=== PATIENT | male | born 1965 | race Caucasian/White ===

== ENCOUNTER 2022-10-22 03:09 | Emergency (ER) | payer OTHER ==
[~2022-10-22] VITALS: Ht 180.3 cm; Wt 99.8 kg
--- NOTE | 2022-10-22 03:20 | NUR ---
TO ER BED 10. [id number] FROM HOME C/O FEELING DIZZY TONIGHT, STARTED TO GET WORSE . PT IS ALERT AND ORIENTED. RR EVEN AND NON LABORED. CONNECTED TO MONITOR.
[2022-10-22] MEDS ORDERED: PROCHLORPERAZINE EDISYLATE 10 MG/2 ML VIAL IVP ONE (03:30)
[2022-10-22] MEDS ORDERED: IV NS 0.9% 1,000 ML BAG IV ONE (03:30)
[2022-10-22] MEDS ORDERED: diphenhydrAMINE HCL 50 MG/ML VIAL IV ONE (03:30)
[2022-10-22] MEDS ORDERED: PROCHLORPERAZINE EDISYLATE 10 MG/2 ML VIAL ONE (03:36)
[2022-10-22] MEDS ORDERED: diphenhydrAMINE HCL 50 MG/ML VIAL ONE (03:36)
--- NOTE | 2022-10-22 03:46 | NUR ---
PT TAKEN TO CT SCAN
--- NOTE | 2022-10-22 04:01 | NUR ---
IV LINE ESTABLISHED, [id number]
--- NOTE | 2022-10-22 04:02 | NUR ---
BLOOD COLLECTED AND SENT TO LAB
[2022-10-22 04:11] LABS: BASOPHILS # (AUTO) 0.1 K/uL (0.0-0.2); BASOPHILS % (AUTO) 0.8 % (0.0-2.0); EOSINOPHILS % (AUTO) 2.7 % (0.0-6.0); HEMATOCRIT 40 % (39-51); HEMOGLOBIN 13.3 g/dL (13.5-17.5); LYMPHOCYTES % (AUTO) 29.4 % (20.0-44.0); MEAN CORPUSCULAR HGB CONC 33 g/dl (31.0-36.0); MEAN CORPUSCULAR VOLUME 86 fL (80-96); MONOCYTES # (AUTO) 0.4 K/uL (0.1-1.30); MONOCYTES % (AUTO) 6.5 % (2.0-12.0); NEUTROPHILS # (AUTO) 4.2 K/uL (1.8-8.9); NEUTROPHILS % (AUTO) 60.6 % (43.0-81.0); PLATELET COUNT (AUTO) 259 K/uL (150-450); RED BLOOD CELL COUNT(AUTO) 4.67 MIL/uL (4.5-6.0); WHITE BLOOD COUNT (AUTO) 6.9 K/uL (4.3-11.0)
[2022-10-22 04:19] LABS: CALCIUM, SERUM 8.6 mg/dL (8.5-10.1); CARBON DIOXIDE 31 mmol/L (21-32); CHLORIDE 107 mmol/L (98-107); CREATININE 1.1 mg/dL (0.6-1.3); GLUCOSE 117 mg/dL (74-106); SODIUM SERUM 143 mmol/L (136-145); UREA NITROGEN, BLOOD 13 mg/dL (7-18)
[2022-10-22] MEDS ORDERED: IV NS 0.9% 1,000 ML IV ONE (07:30)
[2022-10-22] MEDS ORDERED: MECLIZINE HCL 25 MG TABLET PO ONE (07:30)
[2022-10-22] MEDS ORDERED: MECLIZINE HCL 25 MG TABLET ONE (07:42)
--- NOTE | 2022-10-22 09:36 | NUR ---
Patient discharged to home in stable condition. Written and verbal after care instructions given. Patient verbalizes understanding of instruction.IV removed. Catheter intact and site benign. Pressure and 4x4 applied to site. No bleeding noted.
[2022-10-22 09:38] VITALS: BP 122/70
== END 2022-10-22 09:38 | disposition home or self-care (01) ==
LOC: ER 03:16
DX: R42 Dizziness and giddiness (principal)
CPT/HCPCS: 99284; 96374; 70450; 96361; 96375; 85025; 80048; 36415; 84484 ×2; J8597; J0780; J1200; J7030 ×2